=== PATIENT | female | born 1980 | race Two or more races ===

== ENCOUNTER 2016-04-20 09:51 | Emergency (ER) | payer SELFPAY ==
[2016-04-20 09:09] LABS: URINE BILIRUBIN NEGATIVE (NEG); URINE BLOOD NEGATIVE (NEG); URINE GLUCOSE (UA) NEGATIVE (NEG); URINE KETONE NEGATIVE (NEG); URINE LEUKOCYTE ESTERASE NEGATIVE (NEG); URINE NITRITE NEGATIVE (NEG); URINE PROTEIN NEGATIVE (NEG); URINE SPECIFIC GRAVITY 1.005 (1.003-1.030)
[2016-04-20 09:10] LABS: URINE APPEARANCE CLEAR; URINE COLOR PALE YELLOW
[2016-04-20 09:32] LABS: PREGNANCY-SERUM NEGATIVE (NEGATIVE)
[2016-04-20 09:33] LABS: ALB/GLOB RATIO 0.9 (0.8-2.0); ALBUMIN 3.7 g/dl (3.5-5.0); ALKALINE PHOSPHATASE 97 U/L (33-138); ALT/SGPT 34 U/L (12-78); BLOOD UREA NITROGEN 10 mg/dl (6-24); CALCIUM 8.7 mg/dl (8.5-10.5); CARBON DIOXIDE-VENOUS 20 mmol/L (22-32); CHLORIDE 108 mmol/l (96-110); CREATININE 0.68 mg/dl (0.50-1.10); GLUCOSE 95 mg/dL (70-110); LIPASE 197 U/L (73-393); SODIUM 137 mmol/L (135-145); eGFR VALUE FOR BLACK >90 mL/Min
[2016-04-20 09:36] LABS: ANION GAP 13 mmol/L (0-20); BILIRUBIN,TOTAL <0.1 mg/dl (0-1.5); C-REACTIVE PROTEIN <0.3 mg/dl (0-0.9)
[2016-04-20 09:37] LABS: AST/SGOT 32 U/L (10-40); POTASSIUM 4.4 mmol/L (3.7-5.1)
[2016-04-20 09:41] LABS: BASO % 0.3 % (0-2); EOS % 1.1 % (0-7); EOSINOPHIL ABSOLUTE COUNT 0.1 tho/cmm (0.0-0.7); HCT-HEMATOCRIT 35.6 % (34.0-49.0); HGB-HEMOGLOBIN 11.2 gm/dl (12.0-15.5); IMMATURE GRANULOCYTES ABSOLUTE 0.01 tho/cmm (0-0.03); IMMATURE GRANULOCYTES PERCENT 0.2 % (0-0.3); LYMPH % 32.2 % (20-45); LYMPH ABSOLUTE COUNT 2.1 tho/cmm (0.8-4.5); MCH (MEAN CORPUSCULAR HGB) 22.1 pg (28.0-32.0); MCHC MEAN CORPUSCULAR HGB CONC 31.5 % (32.0-36.0); MCV (MEAN CELL VOLUME) 70.4 fl (82.0-96.0); MEAN PLATELET VOLUME 9.5 cmc (9.4-12.4); MONO % 7.3 % (0-12); MONOCYTE ABSOLUTE COUNT 0.5 tho/cmm (0.0-1.2); NEUTROPHIL ABSOLUTE COUNT 3.8 tho/cmm (1.6-8.0); NEUTROPHIL-AUTOMATED 3.8 tho/cmm (1.6-8.0); NEUTROPHILS % 58.9 % (40-80); PLATELET COUNT 320 tho/cmm (150-450); RED BLOOD COUNT 5.06 mil/cmm (4.00-5.20); RED CELL DISTRIBUTION WIDTH 15.8 % (12.4-16.4); WHITE BLOOD COUNT 6.5 tho/cmm (4.0-10.0)
[~2016-04-20 09:51] MED LIST: PRENATAL1 TAB; UNK HTN MED
[2016-04-20] MEDS ORDERED: PRINIVIL10 M1 PO (10:10)
[2016-04-20] MEDS ORDERED: NORCO 5-325 TA1 EACH PO (12:24)
== END 2016-04-20 12:50 ==
LOC: EDMED 09:51
PROVIDERS: Emergency Medicine
DX: N83.201 Unspecified ovarian cyst, right side (principal)
CPT/HCPCS: J1885; J2270; J2405; J7030